=== PATIENT | male | born 1935 | race African-American/Black ===

== ENCOUNTER 2018-01-12 08:55 | Inpatient (IN) | payer MEDICARE, MEDICAID ==
[~2018-01-12] VITALS: Ht 182.9 cm; Wt 90.9 kg
[~2018-01-12 08:55] MED LIST: AMLO5TAB88 PO; ASPI-867 PO; ATOR20TA PO; CLON0.2T PO; CLOP75TA16 PO; COR6 PO; DIGO125T82 PO; DUTA0.5C2 PO; FLUT10SP NS; FURO-151 PO; KLUD20 PO; LEVA15HF4 IH; PRIL10 PO; VALS160T2 PO; XALAO EACHEYE
[2018-01-12] MEDS ORDERED: ALBUTEROL (0.083%) 2.5MG/3ML NEB HHN STA (09:37)
[2018-01-12] MEDS ORDERED: METHYLPREDNISOLONE SOD SUCC 125 MG/2 ML VIAL IV STA (09:37)
[2018-01-12] MEDS ORDERED: IPRATROPIUM BROMIDE (0.02%) 0.5MG/2.5ML NEB HHN STA (09:37)
[2018-01-12] MEDS ORDERED: MAGNESIUM 2 G PREMIX 50 ML IV STA (09:37)
[2018-01-12 09:50] LABS: BASOPHILS % 0.3 % (0.0-2.0); EOSINOPHILS % 0.1 % (0.0-5.0); HEMATOCRIT. 34.9 % (42.0-52.0); HEMOGLOBIN. 11.9 g/dL (14.0-18.0); LYMPHOCYTES % 15.4 % (20.0-50.0); MEAN CORPUSCULAR HEMOGLOBIN 29.4 pg (28.0-32.0); MEAN PLATELET VOLUME 7.7 fl (7.4-10.4); MONOCYTES % 10.3 % (2.0-8.0); NEUTROPHILS % 73.9 % (40.0-76.0); PLATELET 335 x1000/uL (130-400); RED BLOOD CELL COUNT 4.06 mill/uL (4.7-6.1); RED CELL DISTRIBUTION WIDTH 15.4 % (11.6-14.6)
[2018-01-12 09:55] LABS: INR 1.1; PARTIAL THROMBOPLASTIN TIME 27.8 sec (23.4-31.0); PROTHROMBIN TIME 10.9 sec (9.4-11.6)
[2018-01-12 09:57] LABS: CHLORIDE 94 mEq/L (98-107)
[2018-01-12 10:04] LABS: TROPONIN I < 0.02 ng/mL (0.00-0.04)
[2018-01-12] MEDS ORDERED: LEVOFLOXACIN 500MG PREMIX 100 ML IV ONE (10:30)
[2018-01-12 11:08] LABS: CLARITY URINE CLOUDY (CLEAR); COLOR URINE YELLOW (YELLOW); KETONES URINE NEGATIVE (NEGATIVE); LEUKOCYTE ESTERASE URINE 1+ (NEGATIVE); NITRITE URINE NEGATIVE (NEGATIVE); OCCULT BLOOD URINE 1+ (NEGATIVE); PROTEIN URINE 4+ (NEGATIVE); SPECIFIC GRAVITY URINE 1.013 (1.005-1.030)
[2018-01-12] MEDS ORDERED: FUROSEMIDE 40MG/4ML VIAL IVP ONE (13:15)
[2018-01-12] MEDS ORDERED: LEVOFLOXACIN 500MG PREMIX 100 ML IV SCH (14:30)
[2018-01-12] MEDS ORDERED: ONDANSETRON HCL 4MG/2ML VIAL IV PRN (14:30)
[2018-01-12] MEDS ORDERED: HYDROCODONE/ACETAMINOPHEN 5/325MG TABLET PO PRN (14:30)
[2018-01-12] MEDS ORDERED: METHYLPREDNISOLONE SOD SUCC 125 MG/2 ML VIAL IV SCH (14:30)
[2018-01-12] MEDS: ACETAMINOPHEN 325MG TABLET PO PRN (18:44)
[2018-01-12] MEDS: CLONIDINE 0.1MG TABLET PO PRN (18:44)
[2018-01-12 23:45] VITALS: BP 165/60
[2018-01-13 03:19] LABS: CREATINE KINASE 349 IU/L (39-308); TROPONIN I < 0.02 ng/mL (0.00-0.04)
[2018-01-13] MEDS: IPRATROPIUM/ALBUTEROL 0.5-3(2.5)MG/3ML NEB INH PRN ×2 (03:29→16:21)
[2018-01-13 04:00] VITALS: BP 123/56
[2018-01-13 08:26] VITALS: BP 153/57
[2018-01-13] MEDS ORDERED: FUROSEMIDE 40MG/4ML VIAL IV SCH (09:00)
[2018-01-13] MEDS ORDERED: AMLODIPINE 5MG TABLET PO SCH (09:00)
[2018-01-13] MEDS: METHYLPREDNISOLONE SOD SUCC 40 MG/ML VIAL IV SCH ×2 (09:18→17:27)
[2018-01-13] MEDS: ENOXAPARIN 40MG/0.4ML SYR SUBCUT SCH (09:18)
[2018-01-13] MEDS: DUTASTERIDE 0.5MG CAPSULE PO SCH (09:19)
[2018-01-13] MEDS: CLOPIDOGREL 75MG TABLET PO SCH (09:19)
[2018-01-13] MEDS: ASPIRIN 325MG EC TABLET PO SCH (09:19)
[2018-01-13] MEDS: CARVEDILOL 6.25 MG TABLET PO SCH ×2 (09:20→21:17)
[2018-01-13 09:50] LABS: HEMATOCRIT. 34.6 % (42.0-52.0); HEMOGLOBIN. 11.9 g/dL (14.0-18.0); LYMPHOCYTES % 12.7 % (20.0-50.0); MEAN CORPUSCULAR HEMOGLOBIN 29.3 pg (28.0-32.0); MEAN CORPUSCULAR VOLUME 85.3 fL (80.0-94.0); MEAN PLATELET VOLUME 7.6 fl (7.4-10.4); MONOCYTES % 7.2 % (2.0-8.0); NEUTROPHILS % 80.1 % (40.0-76.0); PLATELET 441 x1000/uL (130-400); RED BLOOD CELL COUNT 4.06 mill/uL (4.7-6.1); RED CELL DISTRIBUTION WIDTH 14.7 % (11.6-14.6)
[2018-01-13 10:04] LABS: CHLORIDE 98 mEq/L (98-107)
[2018-01-13 10:15] LABS: CREATINE KINASE 244 IU/L (39-308); HDL CHOLESTEROL 43 mg/dL (40-59); LDL CHOLESTEROL 63 mg/dL (5-100); T4 FREE 1.22 ng/dL (0.76-1.46); TROPONIN I < 0.02 ng/mL (0.00-0.04)
[2018-01-13 12:20] VITALS: BP 136/61
[2018-01-13] MEDS: LEVOFLOXACIN 250MG PREMIX 50 ML IV SCH (13:01)
[2018-01-13] MEDS: CYANOCOBALAMIN 1000MCG/ML VIAL IM SCH (13:07)
[2018-01-13 16:10] VITALS: BP 143/56
[2018-01-13] MEDS: DIGOXIN 125MCG TABLET PO SCH (17:27)
[2018-01-13] MEDS: FAMOTIDINE 20MG/2ML VIAL IV SCH (17:27)
[2018-01-13 20:00] VITALS: BP 120/72
[2018-01-13] MEDS: BUDESONIDE 0.5MG/2ML NEB HHN SCH (20:18)
[2018-01-13] MEDS: LATANOPROST 0.005% OPHTH DROPS 2.5ML EACHEYE SCH (21:15)
[2018-01-13] MEDS: ATORVASTATIN CALCIUM 20MG TABLET PO SCH (21:16)
[2018-01-14] VITALS (7 sets, daily range): BP systolic 119–165; BP diastolic 50–80
[2018-01-14 01:35] LABS: *AMPHETAMINES SCREEN URINE NEGATIVE (NEGATIVE); *BARBITURATES SCREEN URINE NEGATIVE (NEGATIVE); *BENZODIAZEPINES SCREEN URINE NEGATIVE (NEGATIVE); *COCAINE SCREEN URINE NEGATIVE (NEGATIVE); METHADONE URINE SCREEN NEGATIVE (NEGATIVE); OPIATES URINE SCREEN NEGATIVE (NEGATIVE); PHENCYCLIDINE URINE SCREEN NEGATIVE (NEGATIVE)
[2018-01-14 01:36] LABS: CANNABINOID URINE SCREEN NEGATIVE (NEGATIVE)
[2018-01-14 07:06] LABS: BASOPHILS % 0.1 % (0.0-2.0); HEMATOCRIT. 37.9 % (42.0-52.0); HEMOGLOBIN. 12.8 g/dL (14.0-18.0); LYMPHOCYTES % 10.5 % (20.0-50.0); MEAN CORPUSCULAR HEMOGLOBIN 29.2 pg (28.0-32.0); MEAN CORPUSCULAR VOLUME 86.1 fL (80.0-94.0); MEAN PLATELET VOLUME 7.2 fl (7.4-10.4); NEUTROPHILS % 81.4 % (40.0-76.0); PLATELET 592 x1000/uL (130-400)
[2018-01-14 07:14] LABS: CHLORIDE 101 mEq/L (98-107)
[2018-01-14 07:21] LABS: TROPONIN I < 0.02 ng/mL (0.00-0.04)
[2018-01-14] MEDS: ENOXAPARIN 40MG/0.4ML SYR SUBCUT SCH (09:04)
[2018-01-14] MEDS: METHYLPREDNISOLONE SOD SUCC 40 MG/ML VIAL IV SCH ×2 (09:04→17:00)
[2018-01-14] MEDS: DUTASTERIDE 0.5MG CAPSULE PO SCH (09:04)
[2018-01-14] MEDS: CYANOCOBALAMIN 1000MCG/ML VIAL IM SCH (09:04)
[2018-01-14] MEDS: ASPIRIN 325MG EC TABLET PO SCH (09:04)
[2018-01-14] MEDS: CLOPIDOGREL 75MG TABLET PO SCH (09:04)
[2018-01-14] MEDS: CARVEDILOL 6.25 MG TABLET PO SCH ×2 (09:05→21:24)
[2018-01-14] MEDS: BUDESONIDE 0.5MG/2ML NEB HHN SCH ×2 (09:20→21:09)
[2018-01-14] MEDS: LEVOFLOXACIN 250MG PREMIX 50 ML IV SCH (10:47)
[2018-01-14] MEDS: FAMOTIDINE 20MG/2ML VIAL IV SCH (14:57)
[2018-01-14] MEDS: DIGOXIN 125MCG TABLET PO SCH (17:00)
[2018-01-14] MEDS ORDERED: LEVOFLOXACIN 250MG PREMIX 50 ML IV SCH (18:30)
[2018-01-14] MEDS: PIPERACILLIN/TAZ 2.25G PREMIX 50 ML IV SCH (21:24)
[2018-01-14] MEDS: LATANOPROST 0.005% OPHTH DROPS 2.5ML EACHEYE SCH (21:25)
[2018-01-14] MEDS: ATORVASTATIN CALCIUM 20MG TABLET PO SCH (21:25)
[2018-01-15] VITALS: BP 176/75
[2018-01-15] MEDS: PIPERACILLIN/TAZ 2.25G PREMIX 50 ML IV SCH ×4 (01:46→22:21)
[2018-01-15 04:00] VITALS: BP 175/66
[2018-01-15] MEDS: ACETAMINOPHEN 325MG TABLET PO PRN (06:07)
[2018-01-15] MEDS: CLONIDINE 0.1MG TABLET PO PRN ×2 (06:07→22:27)
[2018-01-15 08:10] VITALS: BP 148/64
[2018-01-15 08:21] LABS: BASOPHILS % 0.3 % (0.0-2.0); EOSINOPHILS % 0.1 % (0.0-5.0); HEMATOCRIT. 36.8 % (42.0-52.0); HEMOGLOBIN. 12.3 g/dL (14.0-18.0); LYMPHOCYTES % 13.4 % (20.0-50.0); MEAN CORPUSCULAR HEMOGLOBIN 28.9 pg (28.0-32.0); MEAN CORPUSCULAR VOLUME 86.8 fL (80.0-94.0); MONOCYTES % 8.5 % (2.0-8.0); NEUTROPHILS % 77.7 % (40.0-76.0); RED BLOOD CELL COUNT 4.24 mill/uL (4.7-6.1); RED CELL DISTRIBUTION WIDTH 14.9 % (11.6-14.6)
[2018-01-15 08:31] LABS: CHLORIDE 102 mEq/L (98-107)
[2018-01-15] MEDS: DUTASTERIDE 0.5MG CAPSULE PO SCH (08:44)
[2018-01-15] MEDS: CLOPIDOGREL 75MG TABLET PO SCH (08:44)
[2018-01-15] MEDS: CARVEDILOL 6.25 MG TABLET PO SCH ×2 (08:45→22:22)
[2018-01-15] MEDS: ENOXAPARIN 40MG/0.4ML SYR SUBCUT SCH (08:45)
[2018-01-15] MEDS: METHYLPREDNISOLONE SOD SUCC 40 MG/ML VIAL IV SCH ×2 (08:45→17:35)
[2018-01-15] MEDS: ASPIRIN 325MG EC TABLET PO SCH (08:45)
[2018-01-15] MEDS: CYANOCOBALAMIN 1000MCG/ML VIAL IM SCH (08:45)
[2018-01-15] MEDS: BUDESONIDE 0.5MG/2ML NEB HHN SCH ×2 (09:19→20:26)
[2018-01-15] MEDS: IPRATROPIUM/ALBUTEROL 0.5-3(2.5)MG/3ML NEB INH PRN ×2 (09:25→20:28)
[2018-01-15 10:49] LABS: MEAN PLATELET VOLUME 7.2 fl (7.4-10.4); PLATELET 559 x1000/uL (130-400)
[2018-01-15 12:00] VITALS: BP 144/57
[2018-01-15] MEDS: LEVOFLOXACIN 250MG TABLET PO SCH (12:09)
[2018-01-15] MEDS: FAMOTIDINE 20MG/2ML VIAL IV SCH (14:30)
[2018-01-15 16:22] VITALS: BP 159/66
[2018-01-15] MEDS: DIGOXIN 125MCG TABLET PO SCH (17:31)
[2018-01-15 20:00] VITALS: BP 170/71
[2018-01-15] MEDS: ATORVASTATIN CALCIUM 20MG TABLET PO SCH (22:21)
[2018-01-15] MEDS: LATANOPROST 0.005% OPHTH DROPS 2.5ML EACHEYE SCH (22:22)
[2018-01-16] VITALS: BP 135/78
[2018-01-16 04:00] VITALS: BP 169/81
[2018-01-16] MEDS: PIPERACILLIN/TAZ 2.25G PREMIX 50 ML IV SCH ×4 (04:04→20:16)
[2018-01-16] MEDS: CLONIDINE 0.1MG TABLET PO PRN ×2 (06:47→13:26)
[2018-01-16] MEDS: ASPIRIN 325MG EC TABLET PO SCH (08:05)
[2018-01-16] MEDS: CARVEDILOL 6.25 MG TABLET PO SCH (08:05)
[2018-01-16] MEDS: ENOXAPARIN 40MG/0.4ML SYR SUBCUT SCH (08:05)
[2018-01-16] MEDS: CYANOCOBALAMIN 1000MCG/ML VIAL IM SCH (08:05)
[2018-01-16] MEDS: DUTASTERIDE 0.5MG CAPSULE PO SCH (08:05)
[2018-01-16] MEDS: CLOPIDOGREL 75MG TABLET PO SCH (08:05)
[2018-01-16] MEDS: METHYLPREDNISOLONE SOD SUCC 40 MG/ML VIAL IV SCH ×2 (08:06→18:08)
[2018-01-16] MEDS: BUDESONIDE 0.5MG/2ML NEB HHN SCH ×2 (09:14→21:22)
[2018-01-16 10:10] VITALS: BP 174/63
[2018-01-16] MEDS: AMLODIPINE 5MG TABLET PO SCH (11:00)
[2018-01-16 12:54] VITALS: BP 169/71
[2018-01-16 17:35] VITALS: BP 168/81
[2018-01-16] MEDS: FAMOTIDINE 20MG/2ML VIAL IV SCH (18:08)
[2018-01-16 20:00] VITALS: BP 158/71
[2018-01-16] MEDS: LATANOPROST 0.005% OPHTH DROPS 2.5ML EACHEYE SCH (20:16)
[2018-01-16] MEDS: CARVEDILOL 12.5MG TABLET PO SCH (20:16)
[2018-01-16] MEDS ORDERED: LISINOPRIL 20MG TABLET PO SCH (21:00)
[2018-01-16] MEDS ORDERED: ATORVASTATIN CALCIUM 40MG TABLET PO SCH (21:00)
[2018-01-16] MEDS ORDERED: BUDESONIDE 0.5MG/2ML NEB ONE (21:13)
[2018-01-16] MEDS: IPRATROPIUM/ALBUTEROL 0.5-3(2.5)MG/3ML NEB INH PRN (21:23)
[2018-01-17] VITALS (10 sets, daily range): BP systolic 104–179; BP diastolic 64–89
[2018-01-17] MEDS: CLONIDINE 0.1MG TABLET PO PRN ×3 (00:40→15:54)
[2018-01-17] MEDS: PIPERACILLIN/TAZ 2.25G PREMIX 50 ML IV SCH ×3 (02:39→14:17)
[2018-01-17 06:55] LABS: BG CARBOXYHEMOGLOBIN 0.6 % (0.5-1.5); BG DEOXYHEMOGLOBIN 6.6 % (0.0-5.0); BG HCO3 ACT 28.9 mmol/L (22.0-26.0); BG METHEMOGLOBIN 0.2 % (0.0-1.5); BG OXYGEN SATURATION 93.3 % (92.0-98.5); BG OXYHEMOGLOBIN 92.6 % (94.0-97.0); BG PCO2 44.2 mmHg (35.0-45.0); BG PH 7.433 (7.350-7.450); BG PO2 67.2 mmHg (75.0-100.0); BG SAMPLE SITE RIGHT RADIAL; BG TOTAL HEMOGLOBIN 13.2 g/dL (12.0-18.0); BG VENT MODE ROOM AIR
[2018-01-17 07:17] LABS: HEMATOCRIT 37.3 % (42.0-52.0); HEMOGLOBIN 12.5 g/dL (14.0-18.0); MEAN CORPUSCULAR HEMOGLOBIN 29.1 pg (28.0-32.0); MEAN CORPUSCULAR VOLUME 86.8 fL (80.0-94.0); PLATELET 521 x1000/uL (130-400); RED BLOOD CELL COUNT 4.29 mill/uL (4.7-6.1); RED CELL DISTRIBUTION WIDTH 15.2 % (11.6-14.6)
[2018-01-17 08:40] LABS: CHLORIDE 104 mEq/L (98-107)
[2018-01-17] MEDS ORDERED: ASPIRIN 81MG EC TABLET PO SCH (09:00)
[2018-01-17] MEDS: METHYLPREDNISOLONE SOD SUCC 40 MG/ML VIAL IV SCH ×2 (09:41→15:45)
[2018-01-17] MEDS: CYANOCOBALAMIN 1000MCG/ML VIAL IM SCH (09:41)
[2018-01-17] MEDS: DUTASTERIDE 0.5MG CAPSULE PO SCH (09:42)
[2018-01-17] MEDS: CARVEDILOL 12.5MG TABLET PO SCH ×2 (09:42→17:19)
[2018-01-17] MEDS: CLOPIDOGREL 75MG TABLET PO SCH (09:42)
[2018-01-17] MEDS: ENOXAPARIN 40MG/0.4ML SYR SUBCUT SCH (09:42)
[2018-01-17] MEDS: AMLODIPINE 5MG TABLET PO SCH (09:42)
[2018-01-17] MEDS: LEVOFLOXACIN 250MG TABLET PO SCH (09:53)
[2018-01-17] MEDS: FAMOTIDINE 20MG/2ML VIAL IV SCH (14:17)
[2018-01-17] MEDS ORDERED: CLONIDINE 0.1MG TABLET PO NR (18:15)
== END 2018-01-17 20:14 | disposition home or self-care (01) | DRG 291 ==
LOC: ER 09:11 → 6WST 10:26 → SUPCPDRO 14:28 → ENRESERV 21:27
PROVIDERS: ADMIT Internal Medicine; ATTEND Internal Medicine
DX: I13.0 Hypertensive heart and chronic kidney disease with heart failure and stage 1 through stage 4 chronic kidney disease, or unspecified chronic kidney disease (principal); J96.00 Acute respiratory failure, unspecified whether with hypoxia or hypercapnia; E46 Unspecified protein-calorie malnutrition; J18.1 Lobar pneumonia, unspecified organism; N17.9 Acute kidney failure, unspecified; C85.90 Non-Hodgkin lymphoma, unspecified, unspecified site; I27.20 Pulmonary hypertension, unspecified; I50.43 Acute on chronic combined systolic (congestive) and diastolic (congestive) heart failure; J44.0 Chronic obstructive pulmonary disease with (acute) lower respiratory infection; E87.1 Hypo-osmolality and hyponatremia; N39.0 Urinary tract infection, site not specified; J44.1 Chronic obstructive pulmonary disease with (acute) exacerbation; I42.0 Dilated cardiomyopathy; M19.90 Unspecified osteoarthritis, unspecified site; M71.9 Bursopathy, unspecified; E66.9 Obesity, unspecified; K21.9 Gastro-esophageal reflux disease without esophagitis; K80.20 Calculus of gallbladder without cholecystitis without obstruction; D64.9 Anemia, unspecified; E78.00 Pure hypercholesterolemia, unspecified; E78.5 Hyperlipidemia, unspecified; H26.9 Unspecified cataract; N18.9 Chronic kidney disease, unspecified; Z79.82 Long term (current) use of aspirin; Z79.899 Other long term (current) drug therapy; Z87.891 Personal history of nicotine dependence; Z95.5 Presence of coronary angioplasty implant and graft; Z95.810 Presence of automatic (implantable) cardiac defibrillator; Z88.8 Allergy status to other drugs, medicaments and biological substances; Z72.89 Other problems related to lifestyle; Z85.9 Personal history of malignant neoplasm, unspecified; Z68.27 Body mass index [BMI] 27.0-27.9, adult
CPT/HCPCS: 36415; 36600; 70450; 71045; 71250; 76700; 80048; 80053; 80061; 80162; 80305; 81003; 82375; 82550; 82805; 83605; 83735; 83880; 84439; 84443; 84484; 85025; 85027; 85379; 85610; 85730; 87040; 87070; 87086; 87107; 87804; 93005; 93306; 93970; 94640; 94644; 96365; 96367; 96375; 99291; A6261; J1650; J1940; J1956; J2405; J2543; J2920; J2930; J3420; J3475; J3490; J7040; J7611; J7620; J7626

== ENCOUNTER 2018-01-27 11:29 | Emergency (ER) | payer MEDICARE, MEDICAID ==
[~2018-01-27] VITALS: Ht 177.8 cm; Wt 81.0 kg
[2018-01-27 11:30] VITALS: BP 137/58
[2018-01-27] MEDS ORDERED: TETRACAINE 0.5% OPHTH DROPS 4ML OP ONE (13:15)
[2018-01-27] MEDS ORDERED: FAMOTIDINE 20MG TABLET PO ONE (13:15)
[2018-01-27] MEDS ORDERED: DIPHENHYDRAMINE 25MG CAPSULE PO ONE (13:15)
[2018-01-27] MEDS ORDERED: FLUORESCEIN SODIUM 1MG/STRIP OP ONE (14:30)
== END 2018-01-27 15:01 | disposition home or self-care (01) ==
LOC: ER 13:04
DX: S05.01XA Injury of conjunctiva and corneal abrasion without foreign body, right eye, initial encounter (principal); H11.423 Conjunctival edema, bilateral; I50.9 Heart failure, unspecified; I11.0 Hypertensive heart disease with heart failure; J44.9 Chronic obstructive pulmonary disease, unspecified; Z88.8 Allergy status to other drugs, medicaments and biological substances; Z79.82 Long term (current) use of aspirin; X58.XXXA Exposure to other specified factors, initial encounter; Y93.89 Activity, other specified; Y92.89 Other specified places as the place of occurrence of the external cause; Y99.8 Other external cause status
CPT/HCPCS: 99283; Q0163

== ENCOUNTER 2019-04-05 23:33 | Emergency (ER) | payer MEDICARE, MEDICAID ==
[~2019-04-05] VITALS: Ht 180.3 cm; Wt 96.0 kg
[~2019-04-05 23:33] MED LIST changes: +ASA5EC PO; -ASPI-867 PO
[2019-04-06 02:39] LABS: BASOPHILS % 0.8 % (0.0-2.0); EOSINOPHILS % 2.4 % (0.0-5.0); HEMATOCRIT. 36.8 % (42.0-52.0); HEMOGLOBIN. 12.7 g/dL (14.0-18.0); LYMPHOCYTES % 23.8 % (20.0-50.0); MEAN CORPUSCULAR HEMOGLOBIN 30.1 pg (28.0-32.0); MEAN PLATELET VOLUME 7.6 fl (7.4-10.4); MONOCYTES % 10.8 % (2.0-8.0); NEUTROPHILS % 62.2 % (40.0-76.0); PLATELET 218 x1000/uL (130-400); RED BLOOD CELL COUNT 4.23 mill/uL (4.7-6.1)
[2019-04-06 02:46] LABS: CHLORIDE 102 mEq/L (98-107)
[2019-04-06 02:53] LABS: CLARITY URINE CLEAR (CLEAR); COLOR URINE YELLOW (YELLOW); KETONES URINE NEGATIVE (NEGATIVE); LEUKOCYTE ESTERASE URINE TRACE (NEGATIVE); NITRITE URINE NEGATIVE (NEGATIVE); OCCULT BLOOD URINE NEGATIVE (NEGATIVE); PROTEIN URINE TRACE (NEGATIVE); SPECIFIC GRAVITY URINE 1.002 (1.005-1.030); UROBILINOGEN URINE 0.2 E.U./dL (0.2-1.0)
[2019-04-06 05:53] VITALS: BP 159/69
== END 2019-04-06 05:53 | disposition home or self-care (01) ==
LOC: ER 23:33 → CANBEDREQ 04-06 02:47 → ER 04-06 05:53
DX: Z01.812 Encounter for preprocedural laboratory examination (principal); N40.0 Benign prostatic hyperplasia without lower urinary tract symptoms; K21.9 Gastro-esophageal reflux disease without esophagitis; E78.00 Pure hypercholesterolemia, unspecified; I11.9 Hypertensive heart disease without heart failure; Z95.0 Presence of cardiac pacemaker; Z88.8 Allergy status to other drugs, medicaments and biological substances; Z79.899 Other long term (current) drug therapy
CPT/HCPCS: 36415; 71045; 93005; 99284

== ENCOUNTER → 2019-04-06 | Day surgery (SDC) | payer MEDICARE, MEDICAID ==
[~2019-04-06] VITALS: Ht 180.3 cm; Wt 95.3 kg
[~2019-04-06] MED LIST changes: -CLOP75TA16 PO; +CLOP75TA4 PO; +DOBUTAMINE 250MG PREMIX 250ML IV PRN; +EPINEPHRINE IV ONE; +FENTANYL CITRATE/PF 50MCG/ML 2ML VIAL ONE; +GENTAMICIN SULF 40MG/ML 2ML VIAL ONE; +GENTAMICIN/NS IRRIGATION 0 ML IR ONE; +IODIXANOL 320MG/ML 100 ML BOTTLE IV ONE; +KCL 20MEQ/100ML PREMIX 100 ML IV ONE; +KETAMINE HCL 50 MG/ML 10ML ONE; +LABETALOL 5MG/ML SYR 20 MG/4 ML SYRINGE IV PRN; +LIDOCAINE HCL 1% 20ML VIAL (Pyxis) INJ ONE; +MIDAZOLAM HCL 2 MG/2 ML VIAL ONE; +POTASSIUM CHLORIDE 20MEQ/PACKET PO SCH; +PROPOFOL 200MG/20ML VIAL IV ONE; +SODIUM CHLORIDE 0.9% IV ONE
[2019-04-06 08:10] LABS: PROTHROMBIN TIME 10.4 sec (9.6-11.0)
[2019-04-06] MEDS: POTASSIUM CHLORIDE 20MEQ/PACKET PO SCH ×2 (11:07→12:23)
[2019-04-06 14:53] LABS: CHLORIDE 106 mEq/L (98-107)
== END | disposition home or self-care (01) ==
LOC: CCL 06:15
PROVIDERS: ATTEND Internal Medicine Clinical Cardiac Electrophysiology
DX: T82.120A Displacement of cardiac electrode, initial encounter (principal); Y83.8 Other surgical procedures as the cause of abnormal reaction of the patient, or of later complication, without mention of misadventure at the time of the procedure; Y92.9 Unspecified place or not applicable; I11.0 Hypertensive heart disease with heart failure; I50.9 Heart failure, unspecified; J44.9 Chronic obstructive pulmonary disease, unspecified; Z88.8 Allergy status to other drugs, medicaments and biological substances; Z91.018 Allergy to other foods; Z53.8 Procedure and treatment not carried out for other reasons
CPT/HCPCS: 33224; 36005; 36415; 71045; 75820; 80048; 80053; 81003; 85025; 85610; 85730; 93005; 93283; J1644; J2250; J2704; J3010; J3480; J7040; J7050; Q9967; J1250; J1580; J3490

== ENCOUNTER → 2019-05-29 | Outpatient (CLI) | payer MEDICARE, MEDICAID ==
[~2019-05-29] MED LIST changes: -DOBUTAMINE 250MG PREMIX 250ML IV PRN; -EPINEPHRINE IV ONE; -FENTANYL CITRATE/PF 50MCG/ML 2ML VIAL ONE; -GENTAMICIN SULF 40MG/ML 2ML VIAL ONE; -GENTAMICIN/NS IRRIGATION 0 ML IR ONE; -IODIXANOL 320MG/ML 100 ML BOTTLE IV ONE; -KCL 20MEQ/100ML PREMIX 100 ML IV ONE; -KETAMINE HCL 50 MG/ML 10ML ONE; -LABETALOL 5MG/ML SYR 20 MG/4 ML SYRINGE IV PRN; -LIDOCAINE HCL 1% 20ML VIAL (Pyxis) INJ ONE; -MIDAZOLAM HCL 2 MG/2 ML VIAL ONE; -POTASSIUM CHLORIDE 20MEQ/PACKET PO SCH; -PROPOFOL 200MG/20ML VIAL IV ONE; -SODIUM CHLORIDE 0.9% IV ONE
[2019-05-29 15:28] LABS: CLARITY URINE CLEAR (CLEAR); COLOR URINE YELLOW (YELLOW); KETONES URINE NEGATIVE (NEGATIVE); LEUKOCYTE ESTERASE URINE 1+ (NEGATIVE); NITRITE URINE NEGATIVE (NEGATIVE); OCCULT BLOOD URINE NEGATIVE (NEGATIVE); PH URINE 5.5 (4.5-8.0); PROTEIN URINE 2+ (NEGATIVE); SPECIFIC GRAVITY URINE 1.011 (1.005-1.030); UROBILINOGEN URINE 0.2 E.U./dL (0.2-1.0)
[2019-05-29 15:31] LABS: BASOPHILS % 0.8 % (0.0-2.0); EOSINOPHILS % 1.8 % (0.0-5.0); HEMATOCRIT. 37.9 % (42.0-52.0); HEMOGLOBIN. 12.8 g/dL (14.0-18.0); LYMPHOCYTES % 26.6 % (20.0-50.0); MEAN CORPUSCULAR HEMOGLOBIN 29.2 pg (28.0-32.0); MEAN CORPUSCULAR VOLUME 86.7 fL (80.0-94.0); MEAN PLATELET VOLUME 7.4 fl (7.4-10.4); MONOCYTES % 8.1 % (2.0-8.0); NEUTROPHILS % 62.7 % (40.0-76.0); PLATELET 247 x1000/uL (130-400); RED BLOOD CELL COUNT 4.37 mill/uL (4.7-6.1); RED CELL DISTRIBUTION WIDTH 16.3 % (11.6-14.6)
[2019-05-29 15:34] LABS: CHLORIDE 102 mEq/L (98-107)
[2019-05-29 15:37] LABS: PARTIAL THROMBOPLASTIN TIME 23.8 sec (23.4-31.0); PROTHROMBIN TIME 10.5 sec (9.6-11.0)
== END | disposition home or self-care (01) ==
LOC: LAB 14:20
PROVIDERS: ATTEND Thoracic Surgery (Cardiothoracic Vascular Surgery)
DX: Z01.810 Encounter for preprocedural cardiovascular examination (principal); Z95.818 Presence of other cardiac implants and grafts
CPT/HCPCS: 36415; 80048; 86850; 86900; 87077; 87186

== ENCOUNTER 2024-03-14 05:47 | Inpatient (IN) | payer MEDICARE, MEDICAID ==
[~2024-03-14] VITALS: Ht 180.3 cm; Wt 74.4 kg
[~2024-03-14 05:47] MED LIST changes: -ASA5EC PO; +ASCO-339 MT; +ASPI-867 PO; +CLOP-31 PO; -CLOP75TA4 PO; +DIGO125T80 PO; -DIGO125T82 PO; -FLUT10SP NS; -KLUD20 PO; +LEVO-65 MT; +POTA20LI52 PO; -PRIL10 PO; +ZINC100T8 MT
[2024-03-14 06:18] VITALS: PULSE 72; RESP 20; O2SAT 96
[2024-03-14] MEDS: IPRATROPIUM BROMIDE (0.02%) 0.5MG/2.5ML NEB HHN STA (06:18)
[2024-03-14] MEDS: ALBUTEROL (0.083%) 2.5MG/3ML NEB HHN STA (06:18)
[2024-03-14 06:32] LABS: CHLORIDE 100 mEq/L (98-107); POTASSIUM 3.7 mEq/L (3.5-5.1); SODIUM 131 mEq/L (136-145)
[2024-03-14 06:33] LABS: CARBON DIOXIDE 24 mEq/L (21-32)
[2024-03-14 06:38] LABS: CREATININE 1.7 mg/dL (0.6-1.3); GLUCOSE 96 mg/dL (70-105); UREA NITROGEN BLOOD 10 mg/dL (9-23)
[2024-03-14 06:46] LABS: HEMATOCRIT. 32.8 % (42.0-52.0); HEMOGLOBIN. 10.9 g/dL (14.0-18.0); MEAN CORPUSCULAR HEMOGLOBIN 29.6 pg (28.0-32.0); MEAN CORPUSCULAR HGB CONC 33.3 g/dL (31.0-37.0); MEAN CORPUSCULAR VOLUME 89.2 fL (80.0-94.0); MEAN PLATELET VOLUME 7.8 fl (7.4-10.4); PLATELET 269 x1000/uL (130-400); RED BLOOD CELL COUNT 3.68 mill/uL (4.7-6.1); RED CELL DISTRIBUTION WIDTH 15.4 % (11.6-14.6); WHITE BLOOD COUNT 5.5 x1000/uL (4.5-11.0)
[2024-03-14 06:49] LABS: DIFFERENTIAL COMMENT 1
[2024-03-14 06:59] LABS: TROPONIN I HIGH SENSITIVITY < 4 ng/L (3.0-53)
[2024-03-14] MEDS: AZITHROMYCIN 500MG/250ML 250 ML IV SCH (07:17)
[2024-03-14] MEDS: FUROSEMIDE 40MG/4ML VIAL IV ONE (07:18)
[2024-03-14] MEDS ORDERED: SACU1TAB7 MT (07:59)
[2024-03-14] MEDS ORDERED: OMEP20CA14 MT (08:05)
[2024-03-14] MEDS ORDERED: CHOL400D7 MT (08:05)
[2024-03-14] MEDS ORDERED: ATOR20TA65 MT (08:05)
[2024-03-14] MEDS ORDERED: TAMS-11 PO (08:05)
[2024-03-14] MEDS ORDERED: FERR325T6 MT (08:05)
[2024-03-14] MEDS ORDERED: CYAN50007 MT (08:05)
[2024-03-14] MEDS ORDERED: APIX5TAB MT (08:05)
[2024-03-14 09:02] LABS: TROPONIN I HIGH SENSITIVITY < 4 ng/L (3.0-53)
[2024-03-14 09:19] LABS: ANISOCYTOSIS 1+; PLATELET ESTIMATE NORMAL
[2024-03-14] MEDS: CEFTRIAXONE 2GM/50ML 50 ML IV ONE (11:19)
[2024-03-14 11:20] LABS: TROPONIN I HIGH SENSITIVITY < 4 ng/L (3.0-53)
[2024-03-14] MEDS ORDERED: ONDANSETRON HCL 4MG/2ML INJ IV PRN (13:15)
[2024-03-14] MEDS ORDERED: CLONIDINE 0.1MG TABLET PO PRN (13:15)
[2024-03-14] MEDS ORDERED: IPRATROPIUM/ALBUTEROL 0.5-3(2.5)MG/3ML NEB NEB PRN (13:15)
[2024-03-14 15:23] LABS: TROPONIN I HIGH SENSITIVITY < 4 ng/L (3.0-53)
[2024-03-14 17:00] VITALS: BP 160/63; PULSE 87; RESP 18; TEMP 98; TEMP 98.2
[2024-03-14] MEDS: CARVEDILOL 12.5MG TABLET PO SCH (17:53)
[2024-03-14] MEDS: APIXABAN 5 MG TABLET PO SCH (17:54)
[2024-03-14] MEDS: CLONIDINE 0.2MG TABLET PO SCH (17:54)
[2024-03-14] MEDS: FUROSEMIDE 40MG TABLET PO SCH (17:54)
[2024-03-14 19:53] LABS: CLARITY URINE CLEAR (CLEAR); COLOR URINE YELLOW (YELLOW); GLUCOSE URINE NEGATIVE (NEGATIVE); KETONES URINE NEGATIVE (NEGATIVE); LEUKOCYTE ESTERASE URINE 2+ (NEGATIVE); NITRITE URINE NEGATIVE (NEGATIVE); OCCULT BLOOD URINE NEGATIVE (NEGATIVE); PROTEIN URINE NEGATIVE (NEGATIVE); SPECIFIC GRAVITY URINE 1.006 (1.005-1.030); UROBILINOGEN URINE 0.2 E.U./dL (0.2-1.0)
[2024-03-14 20:00] VITALS: BP 131/59; PULSE 68; RESP 18; TEMP 98
[2024-03-14 20:06] LABS: *AMPHETAMINES SCREEN URINE NEGATIVE (NEGATIVE)
[2024-03-14 20:07] LABS: *BARBITURATES SCREEN URINE NEGATIVE (NEGATIVE); *BENZODIAZEPINES SCREEN URINE NEGATIVE (NEGATIVE); *COCAINE SCREEN URINE NEGATIVE (NEGATIVE); CANNABINOID URINE SCREEN NEGATIVE (NEGATIVE); ECSTASY MDMA SCREEN URINE NEGATIVE (NEGATIVE); METHADONE URINE SCREEN NEGATIVE (NEGATIVE); OPIATES URINE SCREEN NEGATIVE (NEGATIVE); PHENCYCLIDINE URINE SCREEN NEGATIVE (NEGATIVE)
[2024-03-14 20:09] LABS: BACTERIA URINE TRACE; RBC URINE 0-2 /hpf (0-2); SQUAMOUS EPITHELIAL CELL URINE 1+ /lpf (RARE/1+)
[2024-03-14] MEDS: ATORVASTATIN CALCIUM 20MG TABLET PO SCH (20:12)
[2024-03-15] VITALS: BP 139/66; PULSE 82; RESP 18; TEMP 97.3
[2024-03-15 04:00] VITALS: BP 143/66; PULSE 78; RESP 16; TEMP 98
[2024-03-15 07:03] LABS: HEMATOCRIT. 31.9 % (42.0-52.0); HEMOGLOBIN. 10.7 g/dL (14.0-18.0); MEAN CORPUSCULAR HEMOGLOBIN 29.5 pg (28.0-32.0); MEAN CORPUSCULAR HGB CONC 33.5 g/dL (31.0-37.0); MEAN CORPUSCULAR VOLUME 88.1 fL (80.0-94.0); MEAN PLATELET VOLUME 7.7 fl (7.4-10.4); PLATELET 237 x1000/uL (130-400); RED BLOOD CELL COUNT 3.62 mill/uL (4.7-6.1); RED CELL DISTRIBUTION WIDTH 15.4 % (11.6-14.6); WHITE BLOOD COUNT 5.4 x1000/uL (4.5-11.0)
[2024-03-15 07:14] LABS: DIFFERENTIAL COMMENT 1
[2024-03-15 07:30] LABS: CALCIUM 8.7 mg/dL (8.7-10.4)
[2024-03-15 07:35] LABS: CREATININE 1.6 mg/dL (0.6-1.3)
[2024-03-15 08:00] VITALS: BP 146/64; PULSE 69; RESP 16; TEMP 98.1
[2024-03-15] MEDS ORDERED: ATORVASTATIN CALCIUM 20MG TABLET PO SCH (09:00)
[2024-03-15] MEDS ORDERED: AZITHROMYCIN 500MG/250ML 250 ML IV SCH (11:00)
[2024-03-15] MEDS: ASPIRIN 81MG TABLET PO SCH (11:11)
[2024-03-15] MEDS: DUTASTERIDE 0.5MG CAPSULE PO SCH (11:11)
[2024-03-15] MEDS: POTASSIUM CHLORIDE 20MEQ TABLET SR PO NR (11:11)
[2024-03-15] MEDS: TAMSULOSIN HCL 0.4MG SR CAPSULE PO SCH (11:12)
[2024-03-15] MEDS: THIAMINE HCL 100MG TABLET PO SCH (11:12)
[2024-03-15] MEDS: FOLIC ACID 1MG TABLET PO SCH (11:13)
[2024-03-15] MEDS: AMLODIPINE 5MG TABLET PO SCH (11:13)
[2024-03-15] MEDS: ACETAMINOPHEN 325MG TABLET PO PRN (11:23)
[2024-03-15] MEDS: OMEPRAZOLE 20MG CAPSULE EXTENDED RELEASE PO SCH (11:23)
[2024-03-15 12:00] VITALS: BP 131/61; PULSE 72; RESP 20; TEMP 97.4
[2024-03-15] MEDS: CEFTRIAXONE 1GM/50ML 50 ML IV SCH (14:27)
[2024-03-15] MEDS: DOXYCYCLINE 100MG/100ML 100 ML IV SCH (14:28)
[2024-03-15 14:41] LABS: ANISOCYTOSIS 1+; PLATELET ESTIMATE NORMAL
[2024-03-15 16:00] VITALS: PULSE 59; RESP 20; TEMP 97.6
[2024-03-15 20:00] VITALS: BP 105/73; PULSE 85; RESP 18; TEMP 97.8
[2024-03-16] VITALS: BP 132/52; PULSE 61; RESP 16; TEMP 98.8
[2024-03-16 04:00] VITALS: BP 115/55; PULSE 62; RESP 18; TEMP 98.7
[2024-03-16 07:43] LABS: POTASSIUM 3.2 mEq/L (3.5-5.1)
[2024-03-16 07:44] LABS: CALCIUM 9.1 mg/dL (8.7-10.4); HEMATOCRIT. 35.1 % (42.0-52.0); HEMOGLOBIN. 11.7 g/dL (14.0-18.0); MEAN CORPUSCULAR HEMOGLOBIN 29.6 pg (28.0-32.0); MEAN CORPUSCULAR HGB CONC 33.3 g/dL (31.0-37.0); MEAN PLATELET VOLUME 7.8 fl (7.4-10.4); PLATELET 251 x1000/uL (130-400); RED BLOOD CELL COUNT 3.94 mill/uL (4.7-6.1); RED CELL DISTRIBUTION WIDTH 15.4 % (11.6-14.6); WHITE BLOOD COUNT 7.3 x1000/uL (4.5-11.0)
[2024-03-16 07:49] LABS: CREATININE 1.6 mg/dL (0.6-1.3)
[2024-03-16 07:55] LABS: DIFFERENTIAL COMMENT 1
[2024-03-16 08:00] VITALS: BP_SYST 128; BP_DIAS 57; BP_DIAS 60; PULSE 66; RESP 20; TEMP 97.8
[2024-03-16] MEDS: CARVEDILOL 6.25 MG TABLET PO SCH (08:35)
[2024-03-16] MEDS: AMLODIPINE 2.5MG TABLET PO SCH (08:36)
[2024-03-16] MEDS: CLONIDINE 0.2MG TABLET PO SCH (08:43)
[2024-03-16] MEDS ORDERED: AMLODIPINE 10MG TABLET PO SCH (09:00)
[2024-03-16 12:00] VITALS: BP 128/74; PULSE 72; RESP 20; TEMP 97.7
[2024-03-16] MEDS ORDERED: DOXY100C5 MT (13:53)
[2024-03-16] MEDS: POTASSIUM CHLORIDE 20MEQ TABLET SR PO SCH (14:59)
[2024-03-16 15:24] VITALS: BP 118/77; PULSE 74; RESP 20; TEMP 98
[2024-03-16 15:25] VITALS: BP 118/77; PULSE 74; TEMP 98; O2SAT 96
[2024-03-16 16:10] LABS: ANISOCYTOSIS 1+; PLATELET ESTIMATE NORMAL
== END 2024-03-16 17:59 | disposition home or self-care (01) | DRG 291 ==
LOC: ER 05:47 → 5WST 08:00 → EDBEDREQ 08:02 → 8WST 17:31
PROVIDERS: ADMIT Internal Medicine; ATTEND Internal Medicine
DX: I13.0 Hypertensive heart and chronic kidney disease with heart failure and stage 1 through stage 4 chronic kidney disease, or unspecified chronic kidney disease (principal); I50.43 Acute on chronic combined systolic (congestive) and diastolic (congestive) heart failure; J18.9 Pneumonia, unspecified organism; J96.20 Acute and chronic respiratory failure, unspecified whether with hypoxia or hypercapnia; E87.1 Hypo-osmolality and hyponatremia; J44.0 Chronic obstructive pulmonary disease with (acute) lower respiratory infection; N17.9 Acute kidney failure, unspecified; N18.4 Chronic kidney disease, stage 4 (severe); D64.9 Anemia, unspecified; E78.5 Hyperlipidemia, unspecified; F10.20 Alcohol dependence, uncomplicated; H40.9 Unspecified glaucoma; I25.10 Atherosclerotic heart disease of native coronary artery without angina pectoris; I48.0 Paroxysmal atrial fibrillation; G62.9 Polyneuropathy, unspecified; R53.81 Other malaise; K21.9 Gastro-esophageal reflux disease without esophagitis; E87.6 Hypokalemia; N40.0 Benign prostatic hyperplasia without lower urinary tract symptoms; Z79.01 Long term (current) use of anticoagulants; Z88.8 Allergy status to other drugs, medicaments and biological substances; Z95.810 Presence of automatic (implantable) cardiac defibrillator
CPT/HCPCS: 36415; 71045; 80048; 80305; 81003; 83605; 83880; 84145; 84484; 85025; 92610; 93005; 93306; 93970; 97162; 99285; J0456; J0696; J1940; J3490